=== PATIENT | male | born 1965 | race African-American/Black ===

== ENCOUNTER 2017-03-01 12:11 | Emergency (ER) | payer BC ==
[~2017-03-01] VITALS: Ht 172.7 cm; Wt 88.5 kg
--- NOTE | ~2017-03-01 | EKG ---
[address] [address] [place] [address] ELECTROCARDIOGRAM REPORT Name: TELMA RAMIREZ [facility] [id number] Admission: 03/01/17 Attend Phys: Discharge: 03/01/17 Date of : 69 Report #: [id number] THIS REPORT FOR: //name// [facility] ED Test Date: 2017-03-01 Test Time: 12:48:49 Pat Name: TELMA RAMIREZ Department: Room: Gender: Cleat Maker: Gardenia ACKERMAN : 1965 Requested By: Roberto Carlos De Paz Order Number: [id number] MD: Toño Pierson Measurements Intervals [place] Rate: 68 P: 47 MI: 128 QRS: 9 QRSD: 85 T: 2 QT: 396 QTc: 422 Interpretive Statements Sinus rhythm Borderline T wave abnormalities Compared to ECG 08/22/2016 09:51:07 No significant changes Electronically Signed On 03-03-2017 15:39:51 CDT by Toño Pierson [email or web address] <ELECTRONICALLY SIGNED> By: Toño Pierson MD, [facility] 03/03/17 1539 1248 1248 Toño Pierson MD, FACC /EPI
[~2017-03-01 12:11] MED LIST: ALLEGRA-D 12 H1 EAC1; OMEPRAZOLE 20 M20 M1; RAPAFLO4 MG PO; ZOFRAN ODT4 MG PO
[2017-03-01 13:23] LABS: HEMATOCRIT 44.9 % (42.0-52.0); HEMOGLOBIN 15.5 gm/dL (14.0-18.0); MCH 26.8 pg (26.0-34.0); MCHC 34.6 g/dL (28.0-37.0); MCV 77.5 fL (80.0-100.0); RBC 5.79 mil/uL (4.50-6.00); RDW 13.6 % (10.5-14.5); WBC 5.7 thou/uL (4.0-11.0)
[2017-03-01 13:30] LABS: CALCIUM 9.3 mg/dL (8.5-10.1); CREATININE 1.1 mg/dL (0.7-1.3); POTASSIUM 3.6 mmol/L (3.5-5.1)
[2017-03-01 14:26] VITALS: BP 155/92
== END 2017-03-01 14:27 | disposition home or self-care (01) ==
LOC: ER 12:11
PROVIDERS: Emergency Medicine
DX: F41.9 Anxiety disorder, unspecified (principal); F10.99 Alcohol use, unspecified with unspecified alcohol-induced disorder; Z88.8 Allergy status to other drugs, medicaments and biological substances

== ENCOUNTER 2019-07-20 10:01 | Emergency (ER) | payer BC ==
[~2019-07-20] VITALS: Ht 175.3 cm; Wt 90.7 kg
[2019-07-20 10:38] LABS: URINE BILIRUBIN NEGATIVE (Negative); URINE BLOOD TRACE (Negative); URINE CLARITY CLEAR; URINE COLOR YELLOW; URINE GLUCOSE-RANDOM* NEGATIVE (Negative); URINE KETONES NEGATIVE (Negative); URINE LEUKOCYTES-REFLEX NEGATIVE (Negative); URINE NITRITE-REFLEX NEGATIVE (Negative); URINE PROTEIN (DIPSTICK) NEGATIVE (Negative); URINE UROBILINOGEN 0.2 E.U./dl (0.2-1.0)
[2019-07-20 10:55] LABS: BASOPHILS 0.9 % (0.0-2.0); EOSINOPHILS 0.7 % (0.0-3.0); HEMATOCRIT 45.1 % (42.0-52.0); HEMOGLOBIN 15.2 gm/dL (14.0-18.0); LYMPHOCYTES 28.2 % (24.0-44.0); MCH 26.5 pg (26.0-34.0); MCHC 33.6 g/dL (28.0-37.0); MCV 78.9 fL (80.0-100.0); MONOCYTES 7.5 % (1.0-8.0); PLATELET COUNT 210 thou/uL (150-400); POLYS 62.7 % (36.0-66.0); RBC 5.71 mil/uL (4.50-6.00); WBC 4.8 thou/uL (4.0-11.0)
[2019-07-20 11:05] LABS: ANION GAP 7 mmol/L (7-16); BUN 10 mg/dL (7-18); CHLORIDE 103 mmol/L (98-107); CO2 27 mmol/L (21-32); CREATININE 1.1 mg/dL (0.7-1.3); GLUCOSE 124 mg/dL (74-106); POTASSIUM 3.4 mmol/L (3.5-5.1); SODIUM 137 mmol/L (136-145)
[2019-07-20 11:15] LABS: ALBUMIN 3.9 g/dL (3.4-5.0); MAGNESIUM 1.9 mg/dL (1.8-2.4); SGOT 27 U/L (15-37); SGPT 51 U/L (30-65); TOTAL BILIRUBIN 0.2 mg/dL (<0.1-1.0); TOTAL PROTEIN 7.5 g/dL (6.4-8.2); TROPONIN-I <0.06 ng/mL (<0.06)
[2019-07-20 11:22] LABS: AMP/METHAMP Negative (Negative); BARBITURATES Negative (Negative); BENZODIAZEPINES Negative (Negative); COCAINE Negative (Negative); METHADONE Negative (Negative); OPIATES Negative (Negative); PCP Negative (Negative)
[2019-07-20] MEDS ORDERED: NORVASC 2.5 MG2.5 M1 PO (12:27)
[2019-07-20] MEDS ORDERED: LIPITOR10 MG PO (12:28)
[2019-07-20] MEDS ORDERED: ASA81BEC PO (12:29)
[2019-07-20] MEDS ORDERED: ALLEGRA ALLERGY60 MG PO (12:30)
[2019-07-20] MEDS ORDERED: FLONASE 0.05%50 MCG NARES (12:31)
[2019-07-20 13:59] VITALS: BP 141/71
--- NOTE | 2019-07-21 08:34 | EKG ---
[address] [address] [employer] [facility] [place] [address] ELECTROCARDIOGRAM REPORT Name: TELMA RAMIREZ [id number] Admission: 07/20/19 Attend Phys: Discharge: 07/20/19 Date of : 69 Report #: [id number] THIS REPORT FOR: //name// [facility] ED Test Date: 2019-07-20 Test Time: 10:40:34 Pat Name: TELMA RAMIREZ Department: Room: Gender: Machine Sewer: : 1965 Requested By: Checo Ye Order Number: [id number] MD: Ovi Ly Measurements Intervals [place] Rate: 72 P: 59 IA: 130 QRS: 7 QRSD: 83 T: -14 QT: 374 QTc: 410 Interpretive Statements Sinus rhythm Borderline T abnormalities, inferior leads Compared to ECG 03/01/2017 12:48:49 No significant changes Electronically Signed On 07-21-2019 8:34:38 CDT by Ovi Ly [email or web address] <ELECTRONICALLY SIGNED> By: Ovi Ly MD 07/21/19 0834 1040 39 Ovi Ly MD /ELIZABETH
== END 2019-07-20 14:00 | disposition home or self-care (01) ==
LOC: ER 10:01
PROVIDERS: Emergency Medicine
DX: E87.6 Hypokalemia (principal); R53.1 Weakness; I10 Essential (primary) hypertension; E78.00 Pure hypercholesterolemia, unspecified; F41.9 Anxiety disorder, unspecified; Z88.8 Allergy status to other drugs, medicaments and biological substances